=== PATIENT | male | born 1925 | race Caucasian/White ===

== ENCOUNTER 2016-11-12 20:42 | Emergency (ER) | payer MEDICARE, OTHER ==
[2016-11-12 17:46] LABS: BASOPHILS 0.3 %; BASOPHILS ABSOLUTE 0.01 10/3/uL (0.0-0.16); EOSINOPHILS 3.1 %; EOSINOPHILS ABSOLUTE 0.12 10/3/uL (0.0-0.53); HEMATOCRIT 38.8 % (40.0-51.0); HEMOGLOBIN 12.4 g/dL (13.6-17.8); LYMPHOCYTES 28.1 %; LYMPHOCYTES ABSOLUTE 1.09 10/3/uL (0.67-4.30); MANUAL DIFF NO %; MEAN CORPUSCULAR HEMOGLOB 26.6 pg (26.0-34.0); MEAN CORPUSCULAR VOLUME 83.3 fL (80-100); MEAN PLATELET VOLUME 9.9 fL (9.2-13.0); MONOCYTES 9.5 %; MONOCYTES ABSOLUTE 0.37 10/3/uL (0.21-1.20); NEUTROPHILS ABSOLUTE 2.29 10/3/uL (2.02-8.40); PLATELET COUNT 132 10/3/uL (150-400); RBC DISTRIBUTION WIDTH 15.2 % (12.0-16.0); RED CELL COUNT 4.66 10/6/uL (4.7-6.1); WHITE BLOOD CELLS 3.9 10/3/uL (4.5-10.5)
[2016-11-12 18:01] LABS: CALCIUM, SERUM 8.4 MG/DL (8.5-10.4); CHEST PAIN PROFILE TAT 0 Hrs 19 Mins; CHLORIDE, SERUM 110 MMOL/L (96-112); CO2 (CARBON DIOXIDE) 27 MMOL/L (24-34); CREATININE 1.17 MG/DL (0.70-1.30); GFR AFRICAN AMERICAN 64 ML/MIN (>=60); GFR NON AFRICAN AMERICAN 55 ML/MIN (>=60); POTASSIUM, SERUM 4.6 MMOL/L (3.5-5.3); SODIUM, SERUM 143 MMOL/L (135-148); TROPONIN I <0.02 NG/ML (<0.05)
[2016-11-12 18:02] LABS: BUN (BLOOD UREA NITROGEN) 19 MG/DL (6-23); GLUCOSE, SERUM 105 MG/DL (60-99)
[2016-11-12 18:03] LABS: INTERNATIONAL NORMAL RATI 1.8 UNITS (-); PARTIAL THROMBO TIME 35.4 SEC (22.5-37.2); PROTIME (NOT ORD) 20.3 SEC (12.0-14.5)
[~2016-11-12 20:42] MED LIST: ASA5GR PO; ASAB PO; ATV.5 PO; ATV1 PO; B121000P IM; BIOTIN5 MG PO; C2; C25 PO; C5 PO; CO Q-10100 MG PO; CORDARONE PO; COREG3 PO; COREG6 PO; FLONASE NAS; GLUCCHONDR PO; HCTZ25B PO; LOP25 PO; MAXIMUM D3 PO; METAMUCIL; METAMUCIL CAN7 OZ PO; METAMUCIL PO; PLAVIX PO; PRAVACHOL40 MG PO; PRIN10 PO; RESTORIL30 MG PO; TEARS NATURA OPH; VITAMIN D31000 UNIT PO; ZADITOR OPH
== END 2016-11-12 21:00 | disposition home or self-care (01) ==
LOC: ER 20:42
PROVIDERS: Hospitalist
DX: I48.91 Unspecified atrial fibrillation (principal); Z88.0 Allergy status to penicillin; Z88.1 Allergy status to other antibiotic agents; Z79.01 Long term (current) use of anticoagulants; Z79.899 Other long term (current) drug therapy
CPT/HCPCS: 71020; 80048; 83735; 84484; 85025; 85610; 85730; 93005; 99285; A9270-GY